=== PATIENT | female | born 1985 | race Caucasian/White ===

== ENCOUNTER → 2023-10-06 01:12 | Outpatient (CLI) | payer MEDICAID, SELFPAY ==
--- NOTE | 2023-10-06 | DI.RAD_ITS ---
Exam(s) XR SHOULDER LT COMPLETE 2+V EXAM: XR SHOULDER LT COMPLETE 2+V CLINICAL HISTORY: SHOULDER PAIN FOLLOWING INJURY, FAILED PT,M25.519. TECHNIQUE: 2D digital imaging was performed of the left shoulder. Five images were obtained. AP, G rashey, Y-view and axillary views were obtained. COMPARISON: No exams were available for comparison FINDINGS: BONES: No acute fracture is present. No bony destructive lesion is seen. JOINTS: No dislocation present. The joint spaces are well maintained. SOFT TISSUE: Normal. IMPRESSION: Unremarkable radiographs of the left shoulder. DATA REPOSITORY: RADIATION DOSE DELIVERED:
== END ==
PROVIDERS: PCP Family Medicine; Visit Provider Nurse Practitioner Family
DX: M25.512 Pain in left shoulder (principal)
CPT/HCPCS: 73030

== ENCOUNTER 2023-10-13 03:39 | Outpatient (CLI) | payer MEDICAID, SELFPAY ==
[2023-10-13 11:25] LABS: Abs Immature Grans 0.01 10^3/uL (0.0-0.06); Absolute Basophil Count 0.02 10^3/uL (0.0-0.2); Absolute Eosinophil Count 0.07 10^3/uL (0.0-0.7); Absolute Lymphocyte Count 1.54 10^3/uL (1.2-3.4); Absolute Monocyte Count 0.61 10^3/uL (0.1-0.8); Basophils % 0.3; Eosinophils % 1.1; HCT 42.6 % (36.0-46.0); HGB 13.7 g/dL (11.2-15.7); Immature Grans % 0.2; Lymphocytes % 23.9; MCH 28.4 pg (27.0-33.0); MCHC 32.2 % (32.0-36.0); MCV 88 fL (80-95); MPV 10.2 fL (8.0-11.0); Monocytes % 9.5; Platelet Count 221 10^3/uL (130-400); RBC 4.82 10^6/uL (3.93-5.22); RDW 11.7 % (11.7-14.6); RDW-SD 37.5 fL; WBC 6.45 10^3/uL (4.4-10.8)
[2023-10-13 11:51] LABS: ALT 77 U/L (14-59); AST 41 U/L (15-37); Albumin 3.6 g/dL (3.4-5.0); Alkaline Phosphatase 58 U/L (46-116); Anion Gap 9.4 mmol/L (3-11); BUN 11 mg/dL (7-18); Bilirubin, Total 0.5 mg/dL (0.2-1.0); CO2 27.6 mmol/L (21.0-32.0); Calcium 9.4 mg/dL (8.5-10.1); Chloride 102 mmol/L (98-107); Estimated GFR 74.88 (mL/min/1.73m2); FREE T4 1.22 ng/dL (0.76-1.46); Glucose 128 mg/dL (74-106); Potassium 3.9 mmol/L (3.5-5.1); Sodium 139 mmol/L (136-145); TSH 1.28 uIU/mL (0.36-3.74); Total Protein 7.8 g/dL (6.4-8.2)
[2023-10-13 11:52] LABS: GGT < 7 U/L (5-55)
[2023-10-13 12:03] LABS: Calculated LDL 142 mg/dL (<100); Cholesterol 211 mg/dL (<200); HDL Cholesterol 58 mg/dL (40-60); Triglyceride 56 mg/dL (<150)
[2023-10-13 20:43] LABS: Hepatitis B Surface Ag Negative (Negative)
[2023-10-13 21:12] LABS: Hep B Core Antibody Negative (Negative)
[2023-10-13 21:14] LABS: HIV-1/2 Ag & Ab Screen Negative (Negative)
[2023-10-13 21:17] LABS: Hep A Total Ab w Rflx IgM Negative (Negative)
[2023-10-13 22:25] LABS: Hepatitis C Ab w Rflx HCV PCR Reactive (Negative)
[2023-10-16 12:26] LABS: HCV RNA Detection Quantitative 11400 IU/mL (Undetected); HCV RNA Qualitative Detected (Undetected)
== END 2023-10-13 03:40 | disposition home or self-care (01) ==
PROVIDERS: PCP Family Medicine; Visit Provider Nurse Practitioner Family
DX: F32.89 Other specified depressive episodes (principal); E05.90 Thyrotoxicosis, unspecified without thyrotoxic crisis or storm; M25.511 Pain in right shoulder; M25.512 Pain in left shoulder; F11.20 Opioid dependence, uncomplicated; R79.89 Other specified abnormal findings of blood chemistry; E66.01 Morbid (severe) obesity due to excess calories; B19.20 Unspecified viral hepatitis C without hepatic coma; Z11.4 Encounter for screening for human immunodeficiency virus [HIV]
CPT/HCPCS: 36415; 80053; 80061; 86704; 86709; 86803; 87340; 87389; 87522; 82977; 84439; 84443; 85025

== ENCOUNTER 2024-12-23 16:03 | Emergency (ER) | payer MEDICAID, SELFPAY ==
[2024-12-23 16:06] VITALS: BP 139/86; PULSE 109; RESP 20; TEMP 36.7; O2SAT 96
--- NOTE | 2024-12-23 18:01 | ED.GENADUL_ITS ---
Discharge Plan Disposition Patient Disposition: Home Condition: Stable Discharge Details Clinical Impression: Influenza A Primary Care Provider: Mckayla Merritt ED Provider: Benigno Flanagan Home Meds and New Rx's Prescriptions: New benzonatate 100 mg capsule 100 mg PO TID PRNQty: 14 0RF oseltamivir 75 mg capsule 75 mg PO BID 5 Days Qty: 9 0RF Continued lisdexamfetamine [Vyvanse] 40 MG capsule 40 mg PO DAILY buprenorphine-naloxone [Suboxone] 1 EACH film 4 mg PO DAILY Discharge Instructions Instructions: Albuterol, Benzonatate, Oseltamivir, Flu, Adult ED Additional Instructions: You were seen in the emergency department for your persistent respiratory infection, you did test positive for influenza A by rapid antigen testing indicating active contagious infection. Please use therapeutic dosing of Tylenol (acetamenophen) & Advil (ibuprofen) in an alternating fashion as follows: Take 1000mg of Tylenol every 6 hours without missing doses- that is 4 times per day. Correction in between the Tylenol dosings, take 400-600mg of Advil also on a 6 hour schedule, that is also 4 times per day. The daily maximum dosing of Tylenol is 4000mg, and the daily maximum dosing of Advil is 2400mg. This is safe to do for weeks. Please note that some common cold medications & prescription pain medications may contain acetamenophen and you need to read OTC drug labels and factor that in to maximum daily dosings. Please use the prescribed benzonatate for cough suppression prior to bed, use the provided albuterol inhaler for symptomatic shortness of breath, take wrjc-fok-[id number] cold medicines like Mucinex. I have sent a prescription for Tamiflu which is an antiviral that can shorten the duration of flu illness. Please follow-up with your primary care provider, return to the emergency department for acute worsening despite treatment especially with respiratory distress or other emergent concerns. Referrals: Mckayla Merritt [Primary Care Provider] - HPI General Date/Time Provider Initiated Documentation: 12/23/24 16:22 . HPI Narrative: 39 year-old female presents to ED today by POV/ambulating with a chief complaint of persistent respiratory infection with onset 3 weeks ago, has been around her kids who have been sick with her son testing positive for influenza. Quality described as generalized cough and congestion, fatigue, no radiation to shortness of breath, respiratory distress, nausea/vomiting, profound lethargy, hemoptysis, abdominal pain. Severity is described as moderate. Palliating factors include nothing specific attempted. Provoking factors include nothing specific. Events leading up to the incident/Associated Symptoms: Patient is not vaccinated for the flu this year. Patient not anticoagulated. Related Data Home Medications ?Medication ?Instructions ?Recorded ?Confirmed buprenorphine 4 mg-naloxone 1 mg 4 mg PO DAILY 04/23/13 12/23/24 sublingual film (Suboxone) lisdexamfetamine 40 mg capsule 40 mg PO DAILY 04/23/13 12/23/24 (Vyvanse) benzonatate 100 mg capsule 100 mg PO TID PRN #14 caps 12/23/24 oseltamivir 75 mg capsule 75 mg PO BID 5 days #9 caps 12/23/24 Previous Rx's ?Medication ?Instructions ?Recorded benzonatate 100 mg capsule 100 mg PO TID PRN #14 caps 12/23/24 oseltamivir 75 mg capsule 75 mg PO BID 5 days #9 caps 12/23/24 Allergies Allergy/AdvReac Type Severity Reaction Status Date / Time No Known Allergies Allergy Unverified 12/23/24 16:08 General Stated Complaint: RespSymp CHAKA: 4 Review of Systems All systems reviewed & are unremarkable except as noted in HPI and below Exam Narrative Exam Narrative: GENERAL APPEARANCE: Well-nourished, non-toxic, awake and alert, atraumatic, no acute distress. SKIN: Warm, pink, dry, intact, without rashes/lesions/ulcerations. HEAD: Normocephalic, atraumatic, normal hair distribution for gender/age. EYES: Normal conjunctiva, no exudates on lids/lashes. ENT: Nares patent, no circumoral cyanosis, no facial swelling NECK: Supple, trachea midline, painless cervical ROM. LUNGS/CHEST: Lungs CTA bilaterally, non-labored respirations, normal A/P diameter, symmetrical expansion, no chest wall deformity HEART (CV/PV): Regular rate and rhythm without murmur, no peripheral edema, no JVD. ABDOMEN: Soft, non-distended, no guarding. MSK: Normal ROM, no swelling/deformity to bilateral UEs or LEs, moving all extremities without weakness, no cyanosis, spine midline without tenderness, normal curvature. NEURO: Mental Status AAOx4 - alert to person, place, time, events No facial droop, no forehead involvement. Motor: No focal weakness - strength 5/5 in bilateral UEs and LEs, proximal and distal, symmetric. Sensory: sensation intact to light touch globally. Gait normal: patient ambulated without ataxia into ED room. PSYCH: euthymic, cooperative, pleasant, appropriate speech Course Vital Signs Vital signs: Vital Signs Temperature 36.7 C 12/23/24 16:06 Pulse 109 H 12/23/24 16:06 Respiratory Rate 20 12/23/24 16:06 Blood Pressure 139/86 12/23/24 16:06 Pulse Oximetry 96 12/23/24 16:06 Temperature 36.7 C 12/23/24 16:06 Pulse 109 H 12/23/24 16:06 Respiratory Rate 20 12/23/24 16:06 Blood Pressure 139/86 12/23/24 16:06 Blood Pressure Position Sitting 12/23/24 16:06 Pulse Oximetry 96 12/23/24 16:06 Oxygen Delivery Method Room Air 12/23/24 16:06 Oxygen Flow Rate 0 12/23/24 16:06 Medical Decision Making This dictation utilizes [id number] dictation software and may contain unedited grammatical errors. 39 year-old female presents to ED today by POV/ambulating with a chief complaint of persistent respiratory infection with onset 3 weeks ago, has been around her kids who have been sick with her son testing positive for influenza. Quality described as generalized cough and congestion, fatigue, no radiation to shortness of breath, respiratory distress, nausea/vomiting, profound lethargy, hemoptysis, abdominal pain. Severity is described as moderate. Palliating factors include nothing specific attempted. Provoking factors include nothing specific. Events leading up to the incident/Associated Symptoms: Patient is not vaccinated for the flu this year. Patients' medical history: Negative, otherwise healthy. Family and social history: Sick contacts of her children in the home, n o recent travel. Pertinent exam findings / vital signs include lungs overtly CTA, no respiratory distress, stable vitals and nontoxic and afebrile. Differential / pathologies of concern include viral syndrome, pneumonia. Diagnostic studies of: -POC COVID/flu, x-ray chest. -positive for influenza A -XR chest shows bilateral infiltrates, likely viral pneumonia of influenza Interventions of: -Rx for benzonatate, Rx for tamiflu- most recent exposure was influenza by son- reasonable to treat to prevent hospitalization. Rx for albuterol ED Course/Assessment/Plan: 39-year-old female presents with 3 weeks of persistent cough, at first her daughter got sick but was negative for flu then her son did get the flu, she tested positive for flu on rapid antigen indicating likely more recent infection with the flu, I am going to treat her with Tamiflu and provided symptomatic medications including albuterol, benzonatate and recommend therapeutic dosing of Tylenol and ibuprofen, the patient is in no respiratory distress and reasonable for discharge home, she is otherwise healthy. Findings not consistent with respiratory distress, bacterial pneumonia, unstable vitals. Disposition of Influenza A. Patient verbalized understanding of the plan and return to ED criteria and engaged in shared decision making. Medical Records Medical records reviewed: Yes I reviewed the patient's medical records. Imaging Data Radiologic Study: Attestation: I personally reviewed and interpreted this imaging study as follows: Imaging: X-Ray Radiologist's impression: EXAM: XR CHEST 2V PA LATERAL CLINICAL HISTORY: cough x 3 weeks. TECHNIQUE: 2D digital imaging was performed. COMPARISON: No exams were available for comparison FINDINGS: 2 views: Heart size is normal. The mediastinum is not widened. There is infiltrate in the right lower lobe posterior basal segment. There is also infiltrate in the left lower lobe. No pleural effusions. IMPRESSION: Bilateral lower lobe infiltrates, larger on the right side. There are no pleural effusions. Lab Data Lab results reviewed: Yes I reviewed the patient's lab results. Lab results narrative: POC Covid/Flu - positive for influenza A Quality:SDOH Health Related Social Needs: No Data to Display PFSH All Active Problems (Updated 12/23/24 @ 18:57 by SACHIN Butler) Influenza A (Acute) Social History Smoking/Tobacco Use Status: Current every day Tobacco Type: e-cigarettes Smoking risk assessment performed?: Yes Alcohol Intake: current Alcohol Intake frequency: holidays/special occasions only Drug use: Daily Substance use type: marijuana Do you feel safe at home: Yes Do you feel safe in your relationship?: Yes
--- NOTE | 2024-12-23 18:15 | DI.RAD_ITS ---
Exam(s) XR CHEST 2V PA LATERAL EXAM: XR CHEST 2V PA LATERAL CLINICAL HISTORY: cough x 3 weeks. TECHNIQUE: 2D digital imaging was performed. COMPARISON: No exams were available for comparison FINDINGS: 2 views: Heart size is normal. The mediastinum is not widened. There is infiltrate in the right lower lobe posterior basal segment. There is also infiltrate in the left lower lobe. No pleural effusions. IMPRESSION: Bilateral lower lobe infiltrates, larger on the right side. There are no pleural effusions. DATA REPOSITORY: RADIATION DOSE DELIVERED:
[2024-12-23 18:21] VITALS: BP 139/86; PULSE 109; RESP 20; TEMP 36.7; O2SAT 96
[2024-12-23] MEDS: Benzonatate 100 MG CAP PO (19:08)
[2024-12-23] MEDS: Acetaminophen 500 MG TAB 1000 MG PO (19:08)
[2024-12-23] MEDS: Ibuprofen 400 MG TAB PO (19:09)
[2024-12-23] MEDS: Oseltamivir 75 MG CAP PO (19:09)
[2024-12-23 19:13] VITALS: BP 140/80; PULSE 89; RESP 18; TEMP 36.7; O2SAT 96
== END 2024-12-23 19:13 | disposition home or self-care (01) ==
PROVIDERS: Emergency Provider Physician Assistant; PCP Internal Medicine
DX: J10.1 Influenza due to other identified influenza virus with other respiratory manifestations (principal); F17.290 Nicotine dependence, other tobacco product, uncomplicated
CPT/HCPCS: 99284; 71046; 99283

== ENCOUNTER 2025-03-18 16:25 | Emergency (ER) | payer MEDICAID, SELFPAY ==
[2025-03-18 16:31] VITALS: BP 144/84; PULSE 98; RESP 12; TEMP 36.6; O2SAT 98
--- NOTE | 2025-03-18 16:59 | ED.GENADUL_ITS ---
Discharge Plan Disposition Patient Disposition: Home Condition: Stable Discharge Details Clinical Impression: Tick bite, Insect bite Primary Care Provider: Mckayla Merritt ED Provider: Dena Tejeda Home Meds and New Rx's Prescriptions: New hydroxyzine HCl 25 mg tablet 25 mg PO QHS PRN (Reason: itching, anxiety) 7 Days Qty: 7 0RF Rx Instructions: Please take 1 tablet by mouth at night as needed for anxiety itching. No Action buprenorphine-naloxone [Suboxone] 1 EACH film 2 film PO DAILY Discharge Instructions Instructions: Lyme Disease Test, Insect Bites and Stings ED Additional Instructions: At this time you are given 200 mg of doxycycline should cover you for the embedded tick bite of unknown amount of time. The Lyme panel is a send out and may take 2 to 3 days for results. If it is positive we will contact you. If you do not hear from us please contact your primary care or you may call the emergency department for results. You may get hydrocortisone cream 1% which you can get [id number] and apply to your left forearm 2-3 times a day for the next 7 days. A prescription for hydroxyzine was sent to the pharmacy on file this is an antihistamine and also is used for anxiety. Will make you sleepy. Follow up with primary care provider in 3-5 days. Return to ED sooner if any worsening rash, fever, chills or concerns. Thank you for allowing us to care for you today. Referrals: Mckayla Merritt [Primary Care Provider] - 5 days Discharge Data Discharge Date/Time-TO BE ENTERED AT DEPARTURE: 03/18/25 17:30 HPI General Mode of arrival: ambulatory . Date/Time Provider Initiated Documentation: 03/18/25 16:35 . Limitations to Documentation: no limitations . Information obtained by: patient, RN notes reviewed and old records reviewed . HPI Narrative: 40-year-old female presents to the ER with bodyaches chills and fatigue after being stung by of what she believes to be a hornet on her left forearm on . She reports having a pruritic rash since. She reports also that she found an engorged tick on her left posterior upper arm this morning. She does not know how long the tick was embedded. She has no other rash denies any sore throat ear pain no cough. She does report that she had been under a lot of stress lately. Denies any dysuria or any other associated symptoms. Related Data Home Medications ?Medication ?Instructions ?Recorded ?Confirmed buprenorphine 4 mg-naloxone 1 mg 2 film PO DAILY 04/23/13 03/18/25 sublingual film (Suboxone) hydroxyzine HCl 25 mg tablet 25 mg PO QHS PRN itching, anxiety 03/18/25 7 days #7 tabs Previous Rx's ?Medication ?Instructions ?Recorded hydroxyzine HCl 25 mg tablet 25 mg PO QHS PRN itching, anxiety 03/18/25 7 days #7 tabs Allergies Allergy/AdvReac Type Severity Reaction Status Date / Time No Known Allergies Allergy Unverified 03/18/25 16:36 General Stated Complaint: GenMedical CHAKA: 3 Review of Systems All systems reviewed & are unremarkable except as noted in HPI and below Constitutional Constitutional: Reports as per HPI, Reports body ache(s), Reports difficulty sleeping, Reports fatigue and Reports malaise Integumentary/Breasts Skin/Breast: Reports rash Endocrine Endocrine: Reports fatigue Exam Narrative Exam Narrative: Constitutional: Alert and oriented x3. Appears stated age. Normal body habitus. Head: Normocephalic, no trauma. Chest: RRR, Normal S1, S2, distal pulses intact. Resp: Lungs clear to auscultation bilaterally, no wheezes, rales, or rhonchi. Abdomen: Soft, non-distended, Normoactive bowel sounds all 4 quads. Musculoskeletal: Normal gait, Moves all 4 extremities without difficulty. Skin: Capillary refill less than 2 sec. see extremity exam below. Neurologic: Cranial nerves II-XII intact. Alert and oriented x 3. Motor: No deficits noted. Sensory: Intact bilaterally all 4 extremities. Hematologic/Lymphatic: No ecchymosis, no lymphadenopathy. Extrem Left upper extremity: shoulder/upper arm Details: other (Small puncture wound to posterior upper arm which patient reports is where she found a embedded tick. No parts of the tick visualized.) and elbow/forearm Details: other (Approximately 3 x 4 cm triangle shaped rash noted surrounding 3-4 insect bites and excoriations to left anterior forearm) Course Vital Signs Vital signs: Vital Signs Temperature 36.6 C 03/18/25 16:31 Pulse 98 H 03/18/25 16:31 Respiratory Rate 12 03/18/25 16:31 Blood Pressure 144/84 H 03/18/25 16:31 Pulse Oximetry 98 03/18/25 16:31 Temperature 36.6 C 03/18/25 16:31 Temperature Source Oral 03/18/25 16:31 Pulse 98 H 03/18/25 16:31 Respiratory Rate 12 03/18/25 16:31 Blood Pressure 144/84 H 03/18/25 16:31 Blood Pressure Position Sitting 03/18/25 16:31 Pulse Oximetry 98 03/18/25 16:31 Oxygen Delivery Method Room Air 03/18/25 16:31 Oxygen Flow Rate 0 03/18/25 16:31 Lab/Test Results Lab/Test Results: POC- Test(urine) Negative Medical Decision Making 40-year-old female presents to the ER with bodyaches chills and fatigue after being stung by of what she believes to be a hornet on her left forearm on . She reports having a pruritic rash since. She reports also that she found an engorged tick on her left posterior upper arm this morning. She does not know how long the tick was embedded. She has no other rash denies any sore throat ear pain no cough. She does report that she had been under a lot of stress lately. Denies any dysuria or any other associated symptoms. Will order tick and Lyme panel, will cover with 200 mg of doxycycline due to unknown amount of time that the tick was embedded for and that it was engorged. Will also give prescription for instructions to apply hydrocortisone cream 2-3 times daily for the next 7 days. Patient also states that she has been under a lot of stress lately. I did discuss using hydroxyzine for antihistamine and possibly anxiety but this will make her sleepy she verbalized understanding and is willing to try. Prescription sent to the pharmacy on file. This text was generated using Sma[employer] dictation system, please disregard any oddities of phrase or misspellings. 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 just regained custody of her children from [facility]. PFSH All Active Problems (Updated 03/18/25 @ 17:04 by Dena Tejeda NP) Insect bite (Acute) Tick bite (Acute) Social History Smoking/Tobacco Use Status: Current every day Tobacco Type: e-cigarettes Smoking risk assessment performed?: Yes Alcohol Intake: current Alcohol Intake frequency: holidays/special occasions only Drug use: Daily Substance use type: marijuana Housing: other Do you feel safe at home: Yes Do you feel safe in your relationship?: Yes
[2025-03-18] MEDS: Doxycycline Hyclate 100 MG CAP 200 MG PO (17:17)
[2025-03-20 14:03] LABS: Lyme Ab w Rflx to Lyme Confirm Negative (Negative)
[2025-03-22 15:43] LABS: Anaplasma phagocytophilum Negative (Negative); B. miyamotoi PCR Negative (Negative); Babesia divergens/MO-1 Negative (Negative); Babesia duncani Negative (Negative); Babesia microti Negative (Negative); Ehrlichia chaffeensis Negative (Negative); Ehrlichia ewingii/canis Negative (Negative); Ehrlichia muris eauclairensis Negative (Negative)
== END 2025-03-18 17:30 | disposition home or self-care (01) ==
PROVIDERS: Emergency Provider Registered Nurse Emergency; PCP Internal Medicine
DX: S40.862A Insect bite (nonvenomous) of left upper arm, initial encounter (principal); W57.XXXA Bitten or stung by nonvenomous insect and other nonvenomous arthropods, initial encounter; Y93.89 Activity, other specified; Y92.89 Other specified places as the place of occurrence of the external cause
CPT/HCPCS: 81025; 87798; 99283; 86618